=== PATIENT | female | born 1990 | race Caucasian/White ===

== ENCOUNTER 2016-06-06 19:53 | Inpatient (IN) | payer OTHER ==
--- NOTE | ~2016-06-06 | DS ---
Unit #: [id number] #: [id number] Patient: MARTHA LOERA [id number] [facility] [address] [place] [address] [id number] MR#: [id number] NAME: MARTHA LOERA ROOM: [facility] Age: 25 Sex: F Admission Date: 06/06/2016 : 1990 Discharge Date: 06/10/2016 Attending Physician: Valentín Pennington M.D. Primary Care Physician: Primary Care Physician No DISCHARGE SUMMARY REASON FOR ADMISSION Overdose. DIAGNOSTIC STUDIES LABORATORY RESULTS: Unremarkable. HOSPITAL COURSE The patient was admitted to inpatient unit on 06/06/2016 and discharged on 06/10/2016. The patient was treated on the inpatient unit with group therapy, individual therapy, and medication management. The patient responded well with the above modalities of treatment and following medication. DISCHARGE MEDICATIONS Celexa 20 mg daily for depression. DISCHARGE DIAGNOSES Psychiatric: 1. Amphetamine use disorder, severe, F15.20. 2. Opioid use disorder, severe, F11.20. 3. Mood disorder, not otherwise specified, F32.9. Secondary diagnosis: Deferred. Medical diagnosis: None. Stressors: Psychosocial stressors. DISCHARGE INSTRUCTIONS The patient is to follow up in outpatient clinic as per social worker masters. CONDITION ON DISCHARGE The patient was pleasant and cooperative. Denied any psychotic symptom or any suicidal ideation. PROGNOSIS Guarded. DIET AND ACTIVITY As tolerated. Dictated by... Valentín Pennington M.D. Unit #: [id number] #: [id number] Patient: MARTHA LOERA SZC/modl TD: 06/10/2016 15:47 JOB #: [id number] DISCHARGE SUMMARY Page 1 of 1 X Valentín Pennington MD X DISCHARGE SUMMARY
--- NOTE | ~2016-06-06 | HP ---
Unit #: [id number] #: [id number] Patient: KRISS LOERA [id number] [place] [address] [id number] I MR#: [id number] NAME: KRISS LOERA ROOM: P211 Age: 25 Sex: F Admission Date: 06/06/2016 : 1990 Attending Physician: Valentín Pennington M.D. Admitting Physician: Valentín Pennington M.D. Primary Care Physician: Primary Care Physician No HISTORY AND PHYSICAL HISTORY OF PRESENT ILLNESS Kriss is a 25 year old admitted to [address] [place] [address] because of her polysubstance abuse which includes methamphetamine and Lortabs. PAST MEDICAL HISTORY Long history of polysubstance abuse to include methamphetamine and Lortabs. She also has a history of IV drug use but nothing in many months. PAST SURGICAL HISTORY Nothing reported. ALLERGIES No known drug allergies. SOCIAL HISTORY Smokes 1 pack per day. Denies alcohol. Admits to a long history of illicit substance abuse. FAMILY HISTORY Medically noncontributory. REVIEW OF SYSTEMS CONSTITUTIONAL: No fever or chills. HEENT: Denies any sore throat, ear pain or runny nose. CARDIOVASCULAR: Denies chest pain, irregular heart rhythm or palpitations. CHEST: Denies shortness of breath or cough. No hemoptysis. GASTROINTESTINAL: Denies nausea, vomiting, diarrhea or chronic constipation. ENDOCRINE: Denies history of increased thirst or urination. No recent significant weight loss or gain. GENITOURINARY: Denies dysuria, frequency, or hematuria. SKIN: Denies any rashes. HEMATOLOGIC: Denies history of increased bleeding or bruising. MUSCULOSKELETAL: Denies any hot, swollen joints. No generalized muscle pain. NEUROLOGIC: Denies problems with vision or speech. No frequent, severe headaches. No numbness, tingling or weakness in any extremities. Denies loss of bladder or bowel control. CURRENT MEDICATIONS 1. Detox protocol. 2. Ceclor 250 mg b.i.d. Unit #: [id number] #: [id number] Patient: KRISS LOERA PHYSICAL EXAMINATION GENERAL: Alert, well-nourished, in no apparent distress. VITAL SIGNS: Blood pressure 110/66, heart rate 80, respirations 16, temperature 98.6. WEIGHT: 130. HEIGHT: 5 feet 4 inches. SKIN: Warm and dry without rash or lesion. HEENT: Normocephalic. TMs not viewed. Oral and nasal passages clear. Conjunctivae clear. PERRLA. EOMs intact. NECK: Supple without lymphadenopathy or thyromegaly. HEART: Regular rate and rhythm without murmur. LUNGS: Clear. ABDOMEN: Soft, nontender. : Not done. EXTREMITIES: No evidence of cyanosis, clubbing or edema. Moves all without focal deficit. NEUROLOGICAL: Grossly within normal limits. Cranial Nerves: II: Visual sanford are intact. III, IV AND : Extraocular movements are intact. Pupils are equal, round and reactive to light. V: Facial sensation is grossly normal. VII: Facial movements and expression are normal. VIII: Auditory acuity grossly intact. IX, X: Uvula is midline. Phonation is normal. XI: Patient shrugs shoulders and turns head normally. XII: Tongue protrudes in the midline. Sensory and Motor Function: Sensory and motor sensation is grossly normal. Motor: moves all extremities well. Coordination: Gait is normal. Deep Tendon Reflexes: Intact. IMPRESSION Psychiatric admission. RECOMMENDATIONS PSYCHIATRIC: Per psychiatrist. MEDICAL: See no contraindications to participate in facility's activities. MEDICAL PROGNOSIS Good. MEDICAL CONDITION Stable. Dictated by... Azul Gallardo PJosselynAJosselyn-Arian. for Pete Richardson/karin TD: 06/07/2016 18:43 JOB #: [id number] Unit #: [id number] #: [id number] Patient: KRISS LOERA HISTORY AND PHYSICAL Page 1 of 1 X Azul Gallardo HISTORY AND PHYSICAL
--- NOTE | ~2016-06-06 | PN ---
Unit #: [id number] #: [id number] Patient: KRISS LOERA [id number] [facility] [address] [place] [address] [id number] I MR#: [id number] NAME: KRISS LOERA ROOM: P211 Age: 25 Sex: F Admission Date: 06/06/2016 : 1990 Attending Physician: Valentín Pennington M.D. Admitting Physician: Valentín Pennington M.D. Primary Care Physician: Primary Care Physician Janna DUONG PROGRESS NOTES DATE 06/08/2016 DISCUSSION Kriss is a 25-year-old female seen on 06/08/2016. Patient interviewed, chart reviewed, obtained information from the nursing staff. The patient was compliant and cooperative. Mood sad, dysphoric. Flat affect. Isolative, guarded. Patient sad, depressed. Complete review of systems unremarkable. MENTAL STATUS EXAMINATION General appearance: Patient is dressed casually. Attention span and concentration fair. Oriented in time, place and person. Mood and affect sad and dysphoric. Speech monotone. Thought process concrete. Patient denied any thoughts of harming self or others, but recent suicide attempt. History of substance abuse. Insight and judgement poor. DIAGNOSIS 1. Mood disorder NOS. 2. Opiate use disorder, severe. ASSESSMENT AND PLAN Advise to continue with current therapeutic treatment on the inpatient unit with plan to add Celexa 20 mg daily for depression. Will continue to follow. Dictated by... Pete Martino/vanessa TD: 06/09/2016 11:13 JOB #: [id number] Unit #: [id number] #: [id number] Patient: KRISS LOERA PEAVINICIO PROGRESS NOTES Page 1 of 1 X Valentín Pennington MD X PROGRESS NOTE
--- NOTE | ~2016-06-06 | PN ---
Unit #: [id number] #: [id number] Patient: KRISS SCHAFER [id number] [facility] [address] [place] [address] [id number] MR#: [id number] NAME: KRISS SCHAFER ROOM: [facility] Age: 25 Sex: F Admission Date: 06/06/2016 : 1990 Attending Physician: Valentín Pennington M.D. Admitting Physician: aVlentín Pennington M.D. Primary Care Physician: Primary Care Physician Janna DUONG PROGRESS NOTES DATE 06/09/2016 DISCUSSION Ms. Kriss Schafer is a 25-year-old female, seen on 06/09/2016. The patient is compliant and cooperative, able to take care of her activities of daily living, sleeping good, tolerating medications fairly well. REVIEW OF SYSTEMS Complete review of systems unremarkable. MENTAL STATUS EXAMINATION General appearance: Patient dressed casually. Attention span and concentration, fair. Oriented to time, place, and person. Mood and affect, brighter. Speech, regular rate. Thought process, goal-directed. The patient denied any thoughts of harming self or others. Recent and remote memory, poor. Insight and judgment, poor. DIAGNOSES 1. Mood disorder, NOS. 2. Opiate use disorder, moderate. ASSESSMENT/PLAN Advised to continue with the current medication and therapeutic protocol and if needed consider adjustment of medication. Dictated by... Pete Martino/pete TD: 06/10/2016 10:49 JOB #: [id number] Unit #: [id number] #: [id number] Patient: KRISS SCHAFER PROGRESS NOTES Page 1 of 1 X Valentín Pennington MD PROGRESS NOTE
--- NOTE | ~2016-06-06 | PN ---
Unit #: [id number] #: [id number] Patient: KRISS SCHAFER [id number] [facility] [address] [place] [address] [id number] I MR#: [id number] NAME: KRISS SCHAFER ROOM: [facility] Age: 25 Sex: F Admission Date: 06/06/2016 : 1990 Attending Physician: Valentín Pennington M.D. Admitting Physician: Valentín Pennington M.D. Primary Care Physician: Primary Care Physician Janna DUONG PROGRESS NOTES DATE OF SERVICE: 06/07/2016 DISCUSSION Ms. Kriss Schafer is 25-year-old female, seen on 06/07/2016. The patient interviewed, chart reviewed, and obtained information from nursing staff. The patient was compliant and cooperative. Mood, sad and dysphoric. Flat affect. Withdrawn and isolative. REVIEW OF SYSTEMS Complete review of systems unremarkable. MENTAL STATUS EXAMINATION General appearance, the patient dressed casually. Attention span and concentration, fair. Oriented in place and person. Mood and affect, sad and dysphoric. Speech, monotone. Thought process, concrete. The patient denied any thoughts of harming self or others, but still sad, depressed, withdrawn, and isolative. Recent and remote memory, poor. Insight and judgment, poor. DIAGNOSES Mood disorder, not otherwise specified and polysubstance abuse. ASSESSMENT AND PLAN Advised to continue with current treatment on the inpatient unit. If needed, consider further adjustment of medication. Dictated by... Pete Martino/cammie TD: 06/07/2016 17:52 JOB #: [id number] Unit #: [id number] #: [id number] Patient: KRISS SCHAFER PEAVINICIO PROGRESS NOTES Page 1 of 1 X Valentín Pennington MD PROGRESS NOTE
--- NOTE | ~2016-06-06 | PA ---
Unit #: [id number] #: [id number] Patient: KRISS SCHAFER [id number] [facility] [address] [place] [address] [id number] I MR#: [id number] NAME: KRISS SCHAFER ROOM: P211 Age: 25 Sex: F Admission Date: 06/06/2016 : 1990 Date of Assessment: Attending Physician: Valentín Pennington M.D. Admitting Physician: Valentín Pennington M.D. Primary Care Physician: Primary Care Physician No PSYCHIATRIC ASSESSMENT INFORMANTS The patient reliability, fair; chart reliability, good. CHIEF COMPLAINT Depression and substance abuse. HISTORY OF PRESENT ILLNESS Ms. Kriss Schafer is a 25-year-old female, seen on . The patient was transferred from [facility] after she was admitted there after overdose. The patient was texting her father about suicidal ideation. The patient overdosed on baclofen and was on aspirator. The patient reported that she was not suicidal and presented to earlier assessment. The patient was not very forthcoming and giving all the information. The patient was abusing drugs for several years. As per father reported to the hospital, the patient was sending text to her father before this attempted suicide. The patient was very afraid and pleaded with the video game script writer. The patient has been struggling with substance abuse, depression, and custody of her child. The child is in custody of her mother and father. The patient has recently upgraded from snorting methamphetamine and heroin and shooting by IV route. The patient denied any homicidal ideation, but sad and depressed. PAST PSYCHIATRIC HISTORY Unremarkable for any previous treatment. FAMILY HISTORY AND SOCIAL HISTORY The patient has a good support system, but was living by herself. No history of any abuse. History of schizophrenia in mother and substance abuse in mother according to the intake reports. MEDICAL HISTORY Unremarkable for any chronic medical illness. Musculoskeletal; muscle strength and tone, no atrophy or abnormal movement. Gait normal. MEDICATION HISTORY None. ALLERGIES No known drug allergies. SUBSTANCE ABUSE HISTORY The patient reported tobacco use, age of onset 17; opioid, age of onset 15; and amphetamine, age of onset 25. The patient reported IV drug use. Unit #: [id number] #: [id number] Patient: KRISS SCHAFER No history of any blackout, HIV, or hepatitis. Complaining of abdominal cramping, muscle cramping, diarrhea, irritability, nervousness, and poor appetite. REVIEW OF SYSTEMS Complete review of systems, HEENT: Eyes, clear. Ears, nose, mouth, and throat; clear. CARDIOVASCULAR: Unremarkable. RESPIRATORY: Unremarkable. GI: Unremarkable. : Unremarkable. SKIN: Unremarkable. LYMPH NODE: Unremarkable. NEUROLOGIC: Unremarkable. ENDOCRINE: Unremarkable. HEMATOLOGIC: Unremarkable. ALLERGIC/IMMUNOLOGIC: Unremarkable. MUSCULOSKELETAL: Muscle strength and tone, no atrophy or abnormal movement. Gait normal. MENTAL STATUS EXAMINATION CONSTITUTIONAL: Measurement of vital signs; temperature 98.0, pulse 102, respirations 17, oxygen saturation 100%, and blood pressure 105/67. Height 5 feet 4 inches and weight 130 pounds. GENERAL APPEARANCE: The patient dressed casually. The patient did not show any facial deformity. MUSCULOSKELETAL: Please see above. PSYCHIATRIC EXAMINATION Description of speech, regular rate. Description of thought process, circumstantial. Description of association, guarded. Denied any suicidal ideation, but a suicide attempt recently, mood lability, substance abuse. Description of the patient's judgment: Concerning everyday activity, poor. Social situation, poor. Concerning psychiatric condition, poor. Complete mental status examination; oriented in time, place, and person. Recent and remote memory, fair. Attention span and concentration, fair. Language; able to name object, repeat phrases. Fund of knowledge; aware of current event, passive vocabulary intact. Mood and affect, sad and dysphoric. Insight and judgment, fair to poor. ASSETS AND LIABILITIES Assets; the patient is articulate, able to take care of her ADL. Liabilities; history of depression, substance abuse. ADMITTING DIAGNOSIS Psychiatric: 1. Amphetamine use disorder, severe, F15.20. 2. Opioid use disorder, severe, F11.20. 3. Mood disorder, not otherwise specified, F32.9. Secondary diagnosis: Deferred. Medical diagnosis: None. Stressors: Psychosocial stressors. PSYCHIATRIC PLAN, TREATMENT GOAL, AND DISCHARGE PLAN Unit #: [id number] #: [id number] Patient: KRISS SCHAFER 1. Advised to admit the patient on the inpatient unit. Provide safe, supportive, and structured environment. 2. Ordered labs; CBC, CMP, UA, UDS, and test. 3. Precaution for aggression and self-harm. 4. The patient is to attend all the programing, detox protocol, and detox monitoring. 5. Treatment goal is to attain euthymic mood, gain insight into her problem, and learn coping skills. If needed, consider medication for depression. 6. Discharge plan: Plan is to stabilize the patient and consider followup in outpatient program. ESTIMATED LENGTH OF STAY 5 days. Dictated by... Valentín Pennington M.D. BERNARDO/cammie TD: 06/07/2016 18:04 JOB #: [id number] PSYCHIATRIC ASSESSMENT Page 1 of 1 X Valentín Pennington MD X PSYCHIATRIC ASSESSMENT
== END 2016-06-10 10:37 | DRG 897 ==
LOC: P2S 19:53
PROC: HZ2ZZZZ Detoxification Services for Substance Abuse Treatment (ICD-10-PCS; principal; 2016-06-06)
DX: F15.20 Other stimulant dependence, uncomplicated (principal); F11.20 Opioid dependence, uncomplicated; F32.9 Major depressive disorder, single episode, unspecified; F17.210 Nicotine dependence, cigarettes, uncomplicated; F39 Unspecified mood [affective] disorder
CPT/HCPCS: 86592